=== PATIENT | male | born 1950 | race Caucasian/White ===

== ENCOUNTER 2019-02-12 18:49 | Inpatient (IN) | payer MEDICARE, BC ==
[~2019-02-12] VITALS: Ht 172.7 cm; Wt 112.0 kg
[2019-02-12] MEDS ORDERED: aspirin 81mg tab.chew PO ONE (19:10)
[2019-02-12 19:56] LABS: ABG BASE EXCESS -2.8 mmol/L (-2.0-3.0); ABG HCO3 19.5 mmol/L (22.0-26.0); ABG OXYGEN SATURATION 99.6 % (95-98); ABG PCO2 (T) 28.3 mmHg (35.0-45.0); ABG PH (T) 7.456 (7.350-7.450); ABG PO2 (T) 336.5 mmHg (83-108); FCOHb 0.7 % (0.5-1.5); FMetHb 0.3 % (0.3-1.12); FO2Hb 98.6 % (94-100); MINUTE VOLUME 31 L/min; PATIENT TEMPERATURE 36.8; RESPIRATORY RATE 22 b/min; RESPIRATORY RATE (OBSERVED) 24 b/min; TIDAL VOLUME 1210 mL; TOTAL HEMOGLOBIN 16.7 G/dl (14.0-17.9)
[2019-02-12 20:24] LABS: BASOPHILS # (AUTO) 0.1 X10'3 (0-0.2); BASOPHILS % (AUTO) 0.7 % (0-1); EOSINOPHILS # (AUTO) 0.1 X10'3 (0-0.9); EOSINOPHILS % (AUTO) 0.5 % (0-6); HEMATOCRIT 48.6 % (42.0-52.0); HEMOGLOBIN 16.4 g/dl (14.0-17.9); LYMPHOCYTES # (AUTO) 1.3 X10'3 (1.1-4.8); LYMPHOCYTES % (AUTO) 13.3 % (21-51); MEAN CORPUSCULAR HEMOGLOBIN 33.5 PG (27.0-31.0); MEAN CORPUSCULAR HGB CONC 33.8 g/dL (33.0-36.5); MEAN PLATELET VOLUME 9.8 FL (7.4-10.4); MONOCYTES # (AUTO) 0.8 X10'3 (0-0.9); MONOCYTES % (AUTO) 8.6 % (2-12); NEUTROPHILS # (AUTO) 7.3 X10'3 (1.8-7.7); NEUTROPHILS % (AUTO) 76.9 % (42-75); PLATELET COUNT 183 X10'3 (140-440); RED BLOOD COUNT 4.91 X10'6 (4.70-6.10); RED CELL DISTRIBUTION WIDTH 17.9 % (11.5-14.5); WHITE BLOOD COUNT 9.5 X10'3 (4.5-11.0)
[2019-02-12 20:26] LABS: ALANINE AMINOTRANSFERASE 24 U/L (12-78); ALBUMIN 3.2 G/DL (3.4-5.0); ALKALINE PHOSPHATASE 140 IU/L (46-116); ANION GAP 15 (8-16); ASPARTATE AMINO TRANSFERASE 40 U/L (10-37); BILIRUBIN,TOTAL 3.6 MG/DL (0.1-1.0); BLOOD UREA NITROGEN 102 MG/DL (7-18); CALCIUM 9.4 MG/DL (8.5-10.1); CHLORIDE 102 MMOL/L (99-107); CREATININE 4.43 MG/DL (0.60-1.10); GLUCOSE 88 MG/DL (70-104); SODIUM 140 MMOL/L (135-145); TOTAL CARBON DIOXIDE 22.7 MMOL/L (24-32); eGFR 13 ML/MIN
[2019-02-12 20:30] LABS: TOTAL PROTEIN 6.3 G/DL (6.4-8.2)
[2019-02-12 20:40] LABS: MAGNESIUM 2.9 MG/DL (1.5-2.4)
[2019-02-12] MEDS ORDERED: insulin regular, human 10 units/0.1 ml syringe IV ONE (20:50)
[2019-02-12] MEDS ORDERED: dextrose 50%-water 50ml dispensing syringe IV ONE (20:50)
[2019-02-12 21:33] LABS: NUCLEATED RED BLOOD CELLS 3 /100WBC (0-0); TOTAL CELLS COUNTED 100
[2019-02-12 21:35] LABS: PLATELET ESTIMATE NORMAL
[2019-02-12 21:36] LABS: ANISOCYTOSIS 1+; LARGE PLATELETS FEW; POLYCHROMASIA 1+; SCHISTOCYTES FEW
[2019-02-12] MEDS ORDERED: magnesium hydroxide 30ml (MOM) UD suspension PO PRN (22:10)
[2019-02-12] MEDS ORDERED: acetaminophen 325mg tablet PO PRN ×2 (22:10)
[2019-02-12] MEDS ORDERED: ondansetron/PF 4mg/2ml inj IV PRN (22:10)
[2019-02-12] MEDS ORDERED: mag hydrox/Alum hydrox/simeth 30ml oral suspension PO PRN (22:10)
[2019-02-12] MEDS ORDERED: BUDE10.22 INH (22:18)
[2019-02-12] MEDS ORDERED: BUME2TAB7 PO (22:18)
[2019-02-12] MEDS ORDERED: CARV6.253 PO (22:18)
[2019-02-12] MEDS ORDERED: FERR325T32 PO (22:18)
[2019-02-12] MEDS ORDERED: ASPI-1265 PO (22:18)
[2019-02-12] MEDS ORDERED: ALBU2.5V13 NEB (22:18)
[2019-02-12] MEDS ORDERED: SPIR25TA5 PO (22:18)
[2019-02-12] MEDS ORDERED: ROSU10TA28 (22:22)
[2019-02-12] MEDS ORDERED: MULT1TAB74 PO (22:22)
[2019-02-12] MEDS ORDERED: LEVO25TA7 PO (22:22)
[2019-02-12] MEDS ORDERED: OMEP40CA13 PO (22:22)
[2019-02-12] MEDS ORDERED: SERT-153 PO (22:22)
[2019-02-12] MEDS ORDERED: NITR0.4T48 SL (22:22)
[2019-02-12] MEDS ORDERED: albuterol 2.5 MG/3 ML nebule NEB PRN (22:45)
[2019-02-12 23:00] VITALS: BP 135/84
[2019-02-12] MEDS: furosemide 10 MG/1 ML 10ml inj IV SCH (23:48)
[2019-02-13] VITALS (9 sets, daily range): BP systolic 109–178; BP diastolic 81–104
[2019-02-13] MEDS: albuterol 2.5 MG/3 ML nebule NEB SCH ×4 (03:21→20:27)
--- NOTE | 2019-02-13 06:00 | NUR ---
Patient in room PCU 3023. I have received report from JOHNY Torres and had the opportunity to ask questions and assume patient care.
[2019-02-13] MEDS: carvedilol 6.25mg tablet PO SCH ×2 (07:38→21:14)
[2019-02-13] MEDS: furosemide 10 MG/1 ML 10ml inj IV SCH ×3 (07:38→23:58)
[2019-02-13] MEDS: levoTHYROXINE 25mcg tablet PO SCH (07:38)
[2019-02-13] MEDS: pantoprazole 40mg Tablet.DR PO SCH (07:38)
[2019-02-13] MEDS: multivitamins, therapeutics tablet PO SCH (07:39)
[2019-02-13] MEDS: ferrous sulfate 325mg tablet PO SCH (07:39)
[2019-02-13] MEDS: sertraline 50mg tablet PO SCH (07:39)
[2019-02-13] MEDS: aspirin 81mg tab.chew PO SCH (07:41)
[2019-02-13] MEDS: heparin, porcine 5000 units/ml vial SQ SCH ×2 (07:41→21:15)
[2019-02-13 08:00] LABS: BASOPHILS # (AUTO) 0.1 X10'3 (0-0.2); BASOPHILS % (AUTO) 1.3 % (0-1); EOSINOPHILS # (AUTO) 0.1 X10'3 (0-0.9); EOSINOPHILS % (AUTO) 1.3 % (0-6); HEMATOCRIT 49.8 % (42.0-52.0); HEMOGLOBIN 16.2 g/dl (14.0-17.9); LYMPHOCYTES # (AUTO) 1.3 X10'3 (1.1-4.8); LYMPHOCYTES % (AUTO) 12.4 % (21-51); MEAN CORPUSCULAR HEMOGLOBIN 32.6 PG (27.0-31.0); MEAN CORPUSCULAR HGB CONC 32.5 g/dL (33.0-36.5); MEAN CORPUSCULAR VOLUME 100.4 FL (78-98); MEAN PLATELET VOLUME 9.5 FL (7.4-10.4); MONOCYTES # (AUTO) 0.9 X10'3 (0-0.9); MONOCYTES % (AUTO) 8.9 % (2-12); NEUTROPHILS # (AUTO) 7.8 X10'3 (1.8-7.7); NEUTROPHILS % (AUTO) 76.1 % (42-75); PLATELET COUNT 180 X10'3 (140-440); RED BLOOD COUNT 4.96 X10'6 (4.70-6.10); RED CELL DISTRIBUTION WIDTH 18.5 % (11.5-14.5); WHITE BLOOD COUNT 10.2 X10'3 (4.5-11.0)
[2019-02-13 08:13] LABS: PARTIAL THROMBOPLASTIN TIME 32 SECONDS (22-32)
[2019-02-13 08:16] LABS: ALBUMIN 3.1 G/DL (3.4-5.0); ANION GAP 15 (8-16); BLOOD UREA NITROGEN 106 MG/DL (7-18); BUN/CREATININE RATIO 22.7 (5.4-32.0); CALCIUM 9.4 MG/DL (8.5-10.1); CHLORIDE 102 MMOL/L (99-107); CREATININE 4.67 MG/DL (0.60-1.10); GLUCOSE 92 MG/DL (70-104); MAGNESIUM 2.9 MG/DL (1.5-2.4); SODIUM 140 MMOL/L (135-145); TOTAL CARBON DIOXIDE 23.1 MMOL/L (24-32); eGFR 12 ML/MIN
[2019-02-13 08:23] LABS: PHOSPHORUS 8.3 MG/DL (2.3-4.5)
[2019-02-13] MEDS: budesonide 0.5mg/2ml UD nebule IH SCH ×2 (08:42→20:27)
--- NOTE | 2019-02-13 08:45 | NUR ---
Rajiv Holden 3023b Critical Potassium 6.0 @ 2014 JOHNY Smith [id number]
[2019-02-13 09:30] LABS: NUCLEATED RED BLOOD CELLS 4 /100WBC (0-0); TOTAL CELLS COUNTED 100
[2019-02-13] MEDS ORDERED: sodium polystyrene sulfonate 15gm/60ml oral suspension PO ONE (09:30)
[2019-02-13 10:47] LABS: ANISOCYTOSIS 2+; PLATELET ESTIMATE NORMAL
[2019-02-13 10:48] LABS: LARGE PLATELETS FEW; POLYCHROMASIA FEW; SCHISTOCYTES FEW
[2019-02-13] MEDS: DOBUTamine-DoBUTrex 500mg/D5W 250 ML IV SCH (13:15)
[2019-02-13] MEDS: morphine 2 MG/ML inj. syringe IV PRN (16:47)
[2019-02-13 16:52] LABS: CLARITY,URINE CLOUDY (Clear); COLOR,URINE YELLOW (Yellow); GLUCOSE, URINE NEGATIVE (Neg); KETONES,URINE NEGATIVE (Neg); LEUKOCYTE ESTERASE ,URINE NEGATIVE (Neg); NITRITES, URINE NEGATIVE (Neg); OCCULT BLOOD,URINE LARGE (Neg); PH,URINE 5.5 (4.8-8.0); PROTEIN,URINE NEGATIVE (Neg); UROBILINOGEN,URINE 0.2 E.U/dL (0.2-1.0)
[2019-02-13 16:56] LABS: TOTAL PROTEIN,URINE RANDOM 11.7 MG/DL
[2019-02-13 17:07] LABS: UA COLLECTION TYPE CLN CATCH MIDSTREAM
[2019-02-13 17:16] LABS: RBC,URINE 50-100 /HPF (0-2)
[2019-02-13 17:17] LABS: BACTERIA,URINE NONE SEEN /HPF (Neg); SQUAMOUS EPITHELIAL CELL,UR FEW /LPF (FEW); WBC,URINE 0-4 /HPF (0-4)
[2019-02-13 18:22] LABS: UA EOSINOPHILS NO EOS /HPF
[2019-02-13] MEDS ORDERED: citric acid/sodium citrate 15ml oral solution PO ONE (21:00)
[2019-02-14] VITALS (13 sets, daily range): BP systolic 111–144; BP diastolic 76–102
[2019-02-14] MEDS: albuterol 2.5 MG/3 ML nebule NEB SCH ×4 (03:20→20:16)
[2019-02-14 05:00] LABS: BASOPHILS # (AUTO) 0.1 X10'3 (0-0.2); BASOPHILS % (AUTO) 1.3 % (0-1); EOSINOPHILS # (AUTO) 0.2 X10'3 (0-0.9); EOSINOPHILS % (AUTO) 2.3 % (0-6); HEMATOCRIT 43.1 % (42.0-52.0); HEMOGLOBIN 14.2 g/dl (14.0-17.9); LYMPHOCYTES # (AUTO) 1.2 X10'3 (1.1-4.8); LYMPHOCYTES % (AUTO) 12.6 % (21-51); MEAN CORPUSCULAR HEMOGLOBIN 32.6 PG (27.0-31.0); MEAN CORPUSCULAR VOLUME 98.6 FL (78-98); MEAN PLATELET VOLUME 9.3 FL (7.4-10.4); MONOCYTES # (AUTO) 0.8 X10'3 (0-0.9); MONOCYTES % (AUTO) 8.6 % (2-12); NEUTROPHILS # (AUTO) 7.1 X10'3 (1.8-7.7); NEUTROPHILS % (AUTO) 75.2 % (42-75); PLATELET COUNT 163 X10'3 (140-440); RED BLOOD COUNT 4.37 X10'6 (4.70-6.10); RED CELL DISTRIBUTION WIDTH 18.5 % (11.5-14.5); WHITE BLOOD COUNT 9.4 X10'3 (4.5-11.0)
[2019-02-14] MEDS: DOBUTamine-DoBUTrex 500mg/D5W 250 ML IV SCH ×2 (05:00→22:30)
[2019-02-14 05:07] LABS: PARTIAL THROMBOPLASTIN TIME 31 SECONDS (22-32)
[2019-02-14 05:13] LABS: ANION GAP 14 (8-16); BLOOD UREA NITROGEN 107 MG/DL (7-18); BUN/CREATININE RATIO 23.2 (5.4-32.0); CALCIUM 8.9 MG/DL (8.5-10.1); CHLORIDE 101 MMOL/L (99-107); CREATININE 4.62 MG/DL (0.60-1.10); GLUCOSE 122 MG/DL (70-104); MAGNESIUM 2.8 MG/DL (1.5-2.4); POTASSIUM 4.4 MMOL/L (3.5-5.1); SODIUM 140 MMOL/L (135-145); TOTAL CARBON DIOXIDE 25.1 MMOL/L (24-32); eGFR 13 ML/MIN
[2019-02-14 05:28] LABS: PHOSPHORUS 7.8 MG/DL (2.3-4.5)
--- NOTE | 2019-02-14 06:14 | NUR ---
Patient in room PCU 3023. I have received report from JOHNY Torres and had the opportunity to ask questions and assume patient care.
[2019-02-14] MEDS: furosemide 10 MG/1 ML 10ml inj IV SCH ×2 (07:43→17:31)
[2019-02-14] MEDS: multivitamins, therapeutics tablet PO SCH (07:44)
[2019-02-14] MEDS: carvedilol 6.25mg tablet PO SCH ×2 (07:44→20:45)
[2019-02-14] MEDS: aspirin 81mg tab.chew PO SCH (07:44)
[2019-02-14] MEDS: heparin, porcine 5000 units/ml vial SQ SCH ×2 (07:44→20:46)
[2019-02-14] MEDS: levoTHYROXINE 25mcg tablet PO SCH (07:44)
[2019-02-14] MEDS: pantoprazole 40mg Tablet.DR PO SCH (07:44)
[2019-02-14] MEDS: sertraline 50mg tablet PO SCH (07:44)
[2019-02-14] MEDS: ferrous sulfate 325mg tablet PO SCH (07:44)
[2019-02-14] MEDS: budesonide 0.5mg/2ml UD nebule IH SCH ×2 (08:11→20:16)
--- NOTE | 2019-02-14 10:41 | NUR ---
WOUND INFECTION EDUCATION PROVIDED BY WOUND CARE 1. Patient instructed to call their primary doctor, or go the ED immediately if any of the following symptoms occur: * Increased pain in wound * Increase in drainage from the wound * Redness in the skin surrounding the wound * Warmth in the skin surrounding the wound * Bleeding from the wound * Temperature of 101 or greater 2. If any of these occur while in the hospital tell a nurse immediately. Addendum: 02/14/19 at 1041 by Cydney Reich RN Amended: Links added.
[2019-02-14] MEDS: sevelamer carbonate 800mg tablet PO SCH ×2 (13:26→17:31)
--- NOTE | 2019-02-14 17:53 | NUR ---
VS stable throughout the day. Remains on Dobutamine gtt @ 5 mcg. denies pain. 24hr urine started @ 1000. HERI PICC placed. Safety maintained moving with x1 assistance in room. Pt ambulated around the nurses station with PT.
--- NOTE | 2019-02-14 18:10 | NUR ---
Patient in room PCU 3023. I have received report from JOHNY Caban and had the opportunity to ask questions and assume patient care.
[2019-02-14] MEDS: morphine 2 MG/ML inj. syringe IV PRN (20:46)
--- NOTE | 2019-02-14 23:05 | NUR ---
This patient is able to turn in bed with the help of his spouse at bedside on my shift. Addendum: 02/14/19 at 2314 by Yakelin Dubon RN Amended: Links added.
[2019-02-15] VITALS (11 sets, daily range): BP systolic 116–141; BP diastolic 73–111
[2019-02-15] MEDS: furosemide 10 MG/1 ML 10ml inj IV SCH ×3 (00:19→16:35)
[2019-02-15] MEDS: morphine 2 MG/ML inj. syringe IV PRN ×2 (00:34→21:25)
[2019-02-15] MEDS: albuterol 2.5 MG/3 ML nebule NEB SCH ×4 (02:59→20:21)
--- NOTE | 2019-02-15 06:25 | NUR ---
Problems reprioritized. Patient report given, questions answered & plan of care reviewed with JOHNY Caban.
[2019-02-15] MEDS: multivitamins, therapeutics tablet PO SCH (08:06)
[2019-02-15] MEDS: pantoprazole 40mg Tablet.DR PO SCH (08:06)
[2019-02-15] MEDS: ferrous sulfate 325mg tablet PO SCH (08:06)
[2019-02-15] MEDS: sertraline 50mg tablet PO SCH (08:06)
[2019-02-15] MEDS: levoTHYROXINE 25mcg tablet PO SCH (08:06)
[2019-02-15] MEDS: carvedilol 6.25mg tablet PO SCH ×2 (08:06→20:24)
[2019-02-15] MEDS: heparin, porcine 5000 units/ml vial SQ SCH ×2 (08:06→20:28)
[2019-02-15] MEDS: sevelamer carbonate 800mg tablet PO SCH ×3 (08:06→17:47)
[2019-02-15] MEDS: aspirin 81mg tab.chew PO SCH (08:06)
[2019-02-15 08:16] LABS: BASOPHILS # (AUTO) 0.1 X10'3 (0-0.2); EOSINOPHILS # (AUTO) 0.4 X10'3 (0-0.9); EOSINOPHILS % (AUTO) 4.4 % (0-6); MEAN PLATELET VOLUME 9.2 FL (7.4-10.4); MONOCYTES # (AUTO) 0.6 X10'3 (0-0.9)
[2019-02-15 08:18] LABS: BASOPHILS % (AUTO) 0.6 % (0-1); HEMATOCRIT 46.1 % (42.0-52.0); HEMOGLOBIN 15.2 g/dl (14.0-17.9); LYMPHOCYTES % (AUTO) 11.6 % (21-51); MEAN CORPUSCULAR HEMOGLOBIN 32.7 PG (27.0-31.0); MEAN CORPUSCULAR HGB CONC 32.9 g/dL (33.0-36.5); MEAN CORPUSCULAR VOLUME 99.5 FL (78-98); NEUTROPHILS # (AUTO) 6.4 X10'3 (1.8-7.7); NEUTROPHILS % (AUTO) 76.4 % (42-75); PLATELET COUNT 148 X10'3 (140-440); RED BLOOD COUNT 4.64 X10'6 (4.70-6.10); RED CELL DISTRIBUTION WIDTH 18.3 % (11.5-14.5); WHITE BLOOD COUNT 8.4 X10'3 (4.5-11.0)
[2019-02-15 08:25] LABS: ANION GAP 10 (8-16); CHLORIDE 101 MMOL/L (99-107); MAGNESIUM 2.5 MG/DL (1.5-2.4); SODIUM 141 MMOL/L (135-145); TOTAL CARBON DIOXIDE 30.4 MMOL/L (24-32)
[2019-02-15 08:26] LABS: PARTIAL THROMBOPLASTIN TIME 30 SECONDS (22-32)
[2019-02-15 08:32] LABS: BLOOD UREA NITROGEN 103 MG/DL (7-18); BUN/CREATININE RATIO 26.8 (5.4-32.0); CALCIUM 8.6 MG/DL (8.5-10.1); CREATININE 3.84 MG/DL (0.60-1.10); GLUCOSE 123 MG/DL (70-104); PHOSPHORUS 5.8 MG/DL (2.3-4.5); POTASSIUM 4.5 MMOL/L (3.5-5.1); eGFR 16 ML/MIN
[2019-02-15] MEDS: budesonide 0.5mg/2ml UD nebule IH SCH ×2 (09:13→20:21)
--- NOTE | 2019-02-15 09:39 | NUR ---
Called Dr. Martin per MD request with bladder scan results. MD did not answer the phone. Bladder scan showed 6mL after pt voided.
[2019-02-15 09:55] LABS: ANISOCYTOSIS 2+; LARGE PLATELETS FEW; PLATELET ESTIMATE NORMAL; POLYCHROMASIA 1+
[2019-02-15 09:56] LABS: SCHISTOCYTES FEW
[2019-02-15 11:41] LABS: TOTAL VOLUME 24HRS,URINE 3925 ML; UREA NITROGEN 24HR,URINE 12.6 GM/24HR (7-20)
--- NOTE | 2019-02-15 17:36 | NUR ---
VS stable throughout the day. Remains on Dobutamine gtt @ 5 mcg. Denies pain. Strict I&O's recorded. Bladder scans recorded. 24hr complete @ 1000 and sent to lab. Safety maintained as pt walked around the unit with PT x2 today. Moves independently in bed. Plan to continue to diurese and monitor pt on Dobutamine gtt. Pt states he is feeling better.
[2019-02-15] MEDS: DOBUTamine-DoBUTrex 500mg/D5W 250 ML IV SCH (17:47)
--- NOTE | 2019-02-15 21:56 | NUR ---
Spoke to Dr. Lemus about patient's PICC insertion site having redness, heat and mild swelling. He is going to be taking over this patient in the morning and said that he will take a look when he does rounds in the morning.
[2019-02-16] VITALS (16 sets, daily range): BP systolic 102–137; BP diastolic 71–98
[2019-02-16] MEDS: furosemide 10 MG/1 ML 10ml inj IV SCH ×3 (00:19→16:33)
[2019-02-16] MEDS: albuterol 2.5 MG/3 ML nebule NEB SCH ×4 (02:59→20:56)
[2019-02-16 03:31] LABS: BASOPHILS # (AUTO) 0.1 X10'3 (0-0.2); EOSINOPHILS # (AUTO) 0.3 X10'3 (0-0.9); LYMPHOCYTES # (AUTO) 0.9 X10'3 (1.1-4.8); MONOCYTES # (AUTO) 0.5 X10'3 (0-0.9); NEUTROPHILS # (AUTO) 5.5 X10'3 (1.8-7.7)
[2019-02-16 03:33] LABS: BASOPHILS % (AUTO) 0.9 % (0-1); HEMATOCRIT 44.8 % (42.0-52.0); LYMPHOCYTES % (AUTO) 11.8 % (21-51); MEAN CORPUSCULAR HEMOGLOBIN 33.4 PG (27.0-31.0); MEAN CORPUSCULAR HGB CONC 33.4 g/dL (33.0-36.5); MEAN CORPUSCULAR VOLUME 99.9 FL (78-98); MEAN PLATELET VOLUME 9.9 FL (7.4-10.4); MONOCYTES % (AUTO) 7.4 % (2-12); NEUTROPHILS % (AUTO) 75.9 % (42-75); PLATELET COUNT 134 X10'3 (140-440); RED BLOOD COUNT 4.48 X10'6 (4.70-6.10); RED CELL DISTRIBUTION WIDTH 18.3 % (11.5-14.5); WHITE BLOOD COUNT 7.2 X10'3 (4.5-11.0)
[2019-02-16 03:43] LABS: ANION GAP 6 (8-16); BLOOD UREA NITROGEN 91 MG/DL (7-18); BUN/CREATININE RATIO 29.4 (5.4-32.0); CALCIUM 8.7 MG/DL (8.5-10.1); CHLORIDE 101 MMOL/L (99-107); GLUCOSE 114 MG/DL (70-104); MAGNESIUM 2.4 MG/DL (1.5-2.4); POTASSIUM 4.5 MMOL/L (3.5-5.1); SODIUM 140 MMOL/L (135-145); TOTAL CARBON DIOXIDE 32.9 MMOL/L (24-32); eGFR 20 ML/MIN
--- NOTE | 2019-02-16 06:15 | NUR ---
Patient in room PCU 3023. I have received report from Yakelin MCCLAIN and had the opportunity to ask questions and assume patient care.
--- NOTE | 2019-02-16 06:41 | NUR ---
Problems reprioritized. Patient report given, questions answered & plan of care reviewed with JOHNY Cast.
--- NOTE | 2019-02-16 07:40 | NUR ---
Patient in room PCU 3023. I have received report from JOHNY Hamlin and had the opportunity to ask questions and assume patient care.
[2019-02-16] MEDS: budesonide 0.5mg/2ml UD nebule IH SCH ×2 (09:26→20:56)
[2019-02-16] MEDS: multivitamins, therapeutics tablet PO SCH (10:10)
[2019-02-16] MEDS: pantoprazole 40mg Tablet.DR PO SCH (10:10)
[2019-02-16] MEDS: carvedilol 6.25mg tablet PO SCH ×2 (10:11→20:13)
[2019-02-16] MEDS: ferrous sulfate 325mg tablet PO SCH (10:11)
[2019-02-16] MEDS: sevelamer carbonate 800mg tablet PO SCH ×3 (10:11→17:43)
[2019-02-16] MEDS: aspirin 81mg tab.chew PO SCH (10:11)
[2019-02-16] MEDS: sertraline 50mg tablet PO SCH (10:11)
[2019-02-16] MEDS: levoTHYROXINE 25mcg tablet PO SCH (10:11)
[2019-02-16] MEDS: morphine 2 MG/ML inj. syringe IV PRN ×2 (10:13→21:08)
[2019-02-16] MEDS: heparin, porcine 5000 units/ml vial SQ SCH ×2 (10:15→20:14)
[2019-02-16] MEDS: DOBUTamine-DoBUTrex 500mg/D5W 250 ML IV SCH ×2 (11:29→23:40)
--- NOTE | 2019-02-16 18:30 | NUR ---
Problems reprioritized. Patient report given, questions answered & plan of care reviewed with Mireya MCCLAIN.
--- NOTE | 2019-02-16 18:38 | NUR ---
Problems reprioritized. Patient report given, questions answered & plan of care reviewed with JOHNY Gomes.
--- NOTE | 2019-02-16 18:39 | NUR ---
Patient in room PCU 3023. I have received report from JOHNY Robb and had the opportunity to ask questions and assume patient care. Patient is resting comfortably on hospital bed, he is on a dobutamine drip with bedside mobile. He is A&O x3, ALLEN and is appropriate. I will continue to monitor.
--- NOTE | 2019-02-16 22:33 | NUR ---
Around 2100 patient was given Morphine 2mg and shortly after reported feeling hot and clammy. I adjusted the Thermostat in his room so that it would be cooler and he took off all covers. Temp 98.3, BP 119/92, RR 12, SpO2 97% on 2L and pain 0/10, BG 107. I will continue to monitor, at this time he is sleeping comfortably.
[2019-02-17] VITALS (16 sets, daily range): BP systolic 113–160; BP diastolic 79–98
[2019-02-17] MEDS: furosemide 10 MG/1 ML 10ml inj IV SCH ×4 (00:14→23:33)
[2019-02-17] MEDS: albuterol 2.5 MG/3 ML nebule NEB SCH ×4 (03:12→20:33)
[2019-02-17] MEDS: DOBUTamine-DoBUTrex 500mg/D5W 250 ML IV SCH ×2 (04:44→23:34)
--- NOTE | 2019-02-17 05:03 | NUR ---
PICC does not draw.
--- NOTE | 2019-02-17 06:34 | NUR ---
Patient in room PCU 3023. I have received report from JOHNY Gutierrez and had the opportunity to ask questions and assume patient care.
[2019-02-17] MEDS: levoTHYROXINE 25mcg tablet PO SCH (07:10)
[2019-02-17] MEDS: budesonide 0.5mg/2ml UD nebule IH SCH ×2 (08:43→20:33)
[2019-02-17] MEDS: multivitamins, therapeutics tablet PO SCH (08:48)
[2019-02-17] MEDS: pantoprazole 40mg Tablet.DR PO SCH (08:48)
[2019-02-17] MEDS: sertraline 50mg tablet PO SCH (08:48)
[2019-02-17] MEDS: carvedilol 6.25mg tablet PO SCH ×2 (08:48→21:41)
[2019-02-17] MEDS: ferrous sulfate 325mg tablet PO SCH (08:48)
[2019-02-17] MEDS: heparin, porcine 5000 units/ml vial SQ SCH ×2 (08:48→21:42)
[2019-02-17] MEDS: aspirin 81mg tab.chew PO SCH (08:48)
[2019-02-17] MEDS: sevelamer carbonate 800mg tablet PO SCH ×3 (08:48→18:02)
--- NOTE | 2019-02-17 12:13 | NUR ---
[employer] Flow Coordinator is Stephania Lafleur [phone]
--- NOTE | 2019-02-17 15:34 | NUR ---
Initial: Pt admit w/ CHF EF 10% likely causing DICK on CKD per MD note. Pt PO 100% meals meeting needs. LBM 02/16. Phos down to 5.0 from 8.3 on admit. No nutrition concerns at this time. Rec: 1. continue Na-restricted diet per MD 2. wt per rx Addendum: 02/17/19 at [address] Amended: Links added.
--- NOTE | 2019-02-17 18:00 | NUR ---
Problems reprioritized. Patient report given, questions answered & plan of care reviewed with JOHNY Blackmon .
--- NOTE | 2019-02-17 18:37 | NUR ---
Patient in room PCU 3023. I have received report from Kristin MCCLAIN and had the opportunity to ask questions and assume patient care.
[2019-02-18] VITALS (11 sets, daily range): BP systolic 95–129; BP diastolic 65–102
[2019-02-18] MEDS: albuterol 2.5 MG/3 ML nebule NEB SCH ×4 (03:01→20:11)
--- NOTE | 2019-02-18 06:19 | NUR ---
Problems reprioritized. Patient report given, questions answered & plan of care reviewed with Kristin MCCLAIN.
--- NOTE | 2019-02-18 06:25 | NUR ---
Patient in room PCU 3023. I have received report from JOHNY Lawrence and had the opportunity to ask questions and assume patient care.
[2019-02-18 06:28] LABS: ALANINE AMINOTRANSFERASE 25 U/L (12-78); ALBUMIN 3.1 G/DL (3.4-5.0); ALKALINE PHOSPHATASE 129 IU/L (46-116); ANION GAP 9 (8-16); ASPARTATE AMINO TRANSFERASE 33 U/L (10-37); BILIRUBIN,TOTAL 3.3 MG/DL (0.1-1.0); BLOOD UREA NITROGEN 76 MG/DL (7-18); CHLORIDE 100 MMOL/L (99-107); CREATININE 2.45 MG/DL (0.60-1.10); GLUCOSE 104 MG/DL (70-104); MAGNESIUM 2.3 MG/DL (1.5-2.4); SODIUM 142 MMOL/L (135-145); TOTAL CARBON DIOXIDE 33.3 MMOL/L (24-32); eGFR 26 ML/MIN
[2019-02-18 06:29] LABS: PHOSPHORUS 3.9 MG/DL (2.3-4.5); POTASSIUM 4.7 MMOL/L (3.5-5.1); TOTAL PROTEIN 6.3 G/DL (6.4-8.2)
--- NOTE | 2019-02-18 06:40 | NUR ---
estimated EF from ECHO report dated 02/17/19 10-15%
[2019-02-18] MEDS: levoTHYROXINE 25mcg tablet PO SCH (07:00)
[2019-02-18] MEDS: sevelamer carbonate 800mg tablet PO SCH ×3 (08:03→17:36)
[2019-02-18] MEDS: aspirin 81mg tab.chew PO SCH (08:03)
[2019-02-18] MEDS: furosemide 40mg tablet PO SCH (08:03)
[2019-02-18] MEDS: multivitamins, therapeutics tablet PO SCH (08:03)
[2019-02-18] MEDS: sertraline 50mg tablet PO SCH (08:03)
[2019-02-18] MEDS: pantoprazole 40mg Tablet.DR PO SCH (08:03)
[2019-02-18] MEDS: ferrous sulfate 325mg tablet PO SCH (08:03)
[2019-02-18] MEDS: carvedilol 6.25mg tablet PO SCH ×2 (08:03→19:20)
[2019-02-18] MEDS: heparin, porcine 5000 units/ml vial SQ SCH ×2 (08:07→19:24)
[2019-02-18 08:19] LABS: BASOPHILS # (AUTO) 0.1 X10'3 (0-0.2); EOSINOPHILS # (AUTO) 0.3 X10'3 (0-0.9); EOSINOPHILS % (AUTO) 4.2 % (0-6); HEMATOCRIT 46.1 % (42.0-52.0); HEMOGLOBIN 15.2 g/dl (14.0-17.9); LYMPHOCYTES # (AUTO) 0.9 X10'3 (1.1-4.8); LYMPHOCYTES % (AUTO) 11.5 % (21-51); MEAN CORPUSCULAR HGB CONC 32.9 g/dL (33.0-36.5); MEAN CORPUSCULAR VOLUME 100.3 FL (78-98); MEAN PLATELET VOLUME 10.1 FL (7.4-10.4); MONOCYTES # (AUTO) 0.5 X10'3 (0-0.9); MONOCYTES % (AUTO) 6.9 % (2-12); NEUTROPHILS # (AUTO) 5.9 X10'3 (1.8-7.7); NEUTROPHILS % (AUTO) 76.4 % (42-75); PLATELET COUNT 102 X10'3 (140-440); RED CELL DISTRIBUTION WIDTH 18.9 % (11.5-14.5); WHITE BLOOD COUNT 7.8 X10'3 (4.5-11.0)
[2019-02-18] MEDS: budesonide 0.5mg/2ml UD nebule IH SCH ×2 (09:27→20:11)
--- NOTE | 2019-02-18 09:39 | NUR ---
dobutamine discontinued per MD order
[2019-02-18 09:43] LABS: ANISOCYTOSIS 2+; PLATELET ESTIMATE DECREASED
--- NOTE | 2019-02-18 18:15 | NUR ---
Problems reprioritized. Patient report given, questions answered & plan of care reviewed with JOHNY Blackmon .
--- NOTE | 2019-02-18 18:45 | NUR ---
Patient in room PCU 3023. I have received report from Sarah MCCLAIN and had the opportunity to ask questions and assume patient care.
[2019-02-18] MEDS: Melatonin 3mg tablet PO SCH (20:52)
[2019-02-18] MEDS ORDERED: LORazepam 2 mg/ml vial IV PRN (22:50)
[2019-02-19 02:00] VITALS: BP 130/101
[2019-02-19] MEDS: albuterol 2.5 MG/3 ML nebule NEB SCH ×4 (02:51→19:54)
[2019-02-19 06:00] VITALS: BP 111/81
--- NOTE | 2019-02-19 06:19 | NUR ---
Problems reprioritized. Patient report given, questions answered & plan of care reviewed with Kristin MCCLAIN.
[2019-02-19 06:35] LABS: BASOPHILS # (AUTO) 0.1 X10'3 (0-0.2); EOSINOPHILS # (AUTO) 0.2 X10'3 (0-0.9); EOSINOPHILS % (AUTO) 3.2 % (0-6); HEMATOCRIT 46.2 % (42.0-52.0); HEMOGLOBIN 15.3 g/dl (14.0-17.9); LYMPHOCYTES % (AUTO) 13.7 % (21-51); MEAN CORPUSCULAR HEMOGLOBIN 33.2 PG (27.0-31.0); MEAN CORPUSCULAR HGB CONC 33.2 g/dL (33.0-36.5); MEAN CORPUSCULAR VOLUME 100.2 FL (78-98); MEAN PLATELET VOLUME 9.4 FL (7.4-10.4); MONOCYTES # (AUTO) 0.7 X10'3 (0-0.9); MONOCYTES % (AUTO) 8.8 % (2-12); NEUTROPHILS # (AUTO) 5.5 X10'3 (1.8-7.7); NEUTROPHILS % (AUTO) 73.3 % (42-75); PLATELET COUNT 74 X10'3 (140-440); RED BLOOD COUNT 4.61 X10'6 (4.70-6.10); RED CELL DISTRIBUTION WIDTH 18.5 % (11.5-14.5); WHITE BLOOD COUNT 7.5 X10'3 (4.5-11.0)
[2019-02-19 06:45] LABS: ALANINE AMINOTRANSFERASE 26 U/L (12-78); ALKALINE PHOSPHATASE 109 IU/L (46-116); ANION GAP 4 (8-16); BILIRUBIN,TOTAL 3.5 MG/DL (0.1-1.0); BLOOD UREA NITROGEN 77 MG/DL (7-18); BUN/CREATININE RATIO 33.6 (5.4-32.0); CALCIUM 8.8 MG/DL (8.5-10.1); CHLORIDE 101 MMOL/L (99-107); CREATININE 2.29 MG/DL (0.60-1.10); GLUCOSE 96 MG/DL (70-104); MAGNESIUM 2.4 MG/DL (1.5-2.4); SODIUM 139 MMOL/L (135-145); TOTAL CARBON DIOXIDE 33.7 MMOL/L (24-32); eGFR 28 ML/MIN
[2019-02-19 06:46] LABS: ALBUMIN/GLOBULIN RATIO 0.9 (1.1-1.5); ASPARTATE AMINO TRANSFERASE 39 U/L (10-37); POTASSIUM 5.8 MMOL/L (3.5-5.1); TOTAL PROTEIN 6.2 G/DL (6.4-8.2)
[2019-02-19] MEDS: pantoprazole 40mg Tablet.DR PO SCH (08:01)
[2019-02-19] MEDS: furosemide 40mg tablet PO SCH ×2 (08:01→20:00)
[2019-02-19] MEDS: carvedilol 6.25mg tablet PO SCH ×2 (08:01→21:20)
[2019-02-19] MEDS: ferrous sulfate 325mg tablet PO SCH (08:01)
[2019-02-19] MEDS: sertraline 50mg tablet PO SCH (08:01)
[2019-02-19] MEDS: levoTHYROXINE 25mcg tablet PO SCH (08:01)
[2019-02-19] MEDS: multivitamins, therapeutics tablet PO SCH (08:01)
[2019-02-19] MEDS: heparin, porcine 5000 units/ml vial SQ SCH ×2 (08:02→21:19)
[2019-02-19] MEDS: sevelamer carbonate 800mg tablet PO SCH ×3 (08:02→17:48)
[2019-02-19] MEDS: aspirin 81mg tab.chew PO SCH (08:02)
[2019-02-19] MEDS: budesonide 0.5mg/2ml UD nebule IH SCH ×2 (08:33→19:54)
[2019-02-19] MEDS ORDERED: furosemide 20MG tablet PO ONE ×2 (09:25→10:25)
[2019-02-19 11:00] VITALS: BP 141/95
[2019-02-19] MEDS: fludrocortisone acetate 0.1mg tablet PO SCH (13:36)
[2019-02-19 15:00] VITALS: BP_SYST 110; BP_SYST 141; BP_DIAS 69; BP_DIAS 87
--- NOTE | 2019-02-19 15:10 | NUR ---
Notified Dr Martin of patient weakness and aloc. He ordered STAT ABG order sent to respiratory
[2019-02-19 16:05] LABS: ABG BASE EXCESS 4.8 mmol/L (-2.0-3.0); ABG HCO3 32.1 mmol/L (22.0-26.0); ABG OXYGEN SATURATION 90.5 % (95-98); ABG PCO2 (T) 57.5 mmHg (35.0-45.0); ABG PH (T) 7.365 (7.350-7.450); ABG PO2 (T) 63.9 mmHg (83-108); ALLEN'S TEST Positive; FCOHb 1.2 % (0.5-1.5); FLOW 3 L/min; FMetHb 0.1 % (0.3-1.12); FO2Hb 89.3 % (94-100); TOTAL HEMOGLOBIN 16.4 G/dl (14.0-17.9)
--- NOTE | 2019-02-19 18:20 | NUR ---
Problems reprioritized. Patient report given, questions answered & plan of care reviewed with JOHNY Torres .
[2019-02-19 19:00] VITALS: BP 113/88
[2019-02-19] MEDS: Melatonin 3mg tablet PO SCH (21:19)
[2019-02-19 23:00] VITALS: BP_SYST 115; BP_SYST 116; BP_SYST 120; BP_DIAS 92; BP_DIAS 96
[2019-02-20] VITALS (7 sets, daily range): BP systolic 105–139; BP diastolic 68–94
[2019-02-20] MEDS: albuterol 2.5 MG/3 ML nebule NEB SCH ×4 (02:19→20:37)
[2019-02-20 04:36] LABS: BASOPHILS # (AUTO) 0.1 X10'3 (0-0.2); BASOPHILS % (AUTO) 1.1 % (0-1); EOSINOPHILS # (AUTO) 0.2 X10'3 (0-0.9); EOSINOPHILS % (AUTO) 2.5 % (0-6); HEMATOCRIT 46.9 % (42.0-52.0); HEMOGLOBIN 15.4 g/dl (14.0-17.9); LYMPHOCYTES # (AUTO) 1.1 X10'3 (1.1-4.8); LYMPHOCYTES % (AUTO) 11.9 % (21-51); MEAN CORPUSCULAR HEMOGLOBIN 33.4 PG (27.0-31.0); MEAN CORPUSCULAR VOLUME 101.2 FL (78-98); MEAN PLATELET VOLUME 10.7 FL (7.4-10.4); MONOCYTES # (AUTO) 0.7 X10'3 (0-0.9); NEUTROPHILS # (AUTO) 6.8 X10'3 (1.8-7.7); NEUTROPHILS % (AUTO) 76.5 % (42-75); PLATELET COUNT 78 X10'3 (140-440); RED BLOOD COUNT 4.63 X10'6 (4.70-6.10); WHITE BLOOD COUNT 8.9 X10'3 (4.5-11.0)
[2019-02-20 04:49] LABS: ALANINE AMINOTRANSFERASE 25 U/L (12-78); ALKALINE PHOSPHATASE 112 IU/L (46-116); ANION GAP 7 (8-16); ASPARTATE AMINO TRANSFERASE 25 U/L (10-37); BILIRUBIN,TOTAL 3.3 MG/DL (0.1-1.0); BLOOD UREA NITROGEN 80 MG/DL (7-18); CALCIUM 8.7 MG/DL (8.5-10.1); CHLORIDE 100 MMOL/L (99-107); CREATININE 2.35 MG/DL (0.60-1.10); GLUCOSE 116 MG/DL (70-104); MAGNESIUM 2.4 MG/DL (1.5-2.4); POTASSIUM 4.3 MMOL/L (3.5-5.1); SODIUM 139 MMOL/L (135-145); TOTAL CARBON DIOXIDE 31.8 MMOL/L (24-32); eGFR 27 ML/MIN
[2019-02-20 05:10] LABS: ALBUMIN/GLOBULIN RATIO 0.9 (1.1-1.5); PHOSPHORUS 4.1 MG/DL (2.3-4.5); TOTAL PROTEIN 6.2 G/DL (6.4-8.2)
--- NOTE | 2019-02-20 06:15 | NUR ---
Patient in room PCU 3023. I have received report from Melissa MCCLAIN and had the opportunity to ask questions and assume patient care. Pt is in bathroom with at bed side, all needs met at this time. will continue to monitor.
[2019-02-20 06:26] LABS: ANISOCYTOSIS 2+; PLATELET ESTIMATE DECREASED
[2019-02-20 06:27] LABS: ELLIPTOCYTES FEW
[2019-02-20] MEDS: sertraline 50mg tablet PO SCH (07:53)
[2019-02-20] MEDS: levoTHYROXINE 25mcg tablet PO SCH (07:53)
[2019-02-20] MEDS: multivitamins, therapeutics tablet PO SCH (07:53)
[2019-02-20] MEDS: carvedilol 6.25mg tablet PO SCH ×2 (07:54→19:13)
[2019-02-20] MEDS: ferrous sulfate 325mg tablet PO SCH (07:54)
[2019-02-20] MEDS: fludrocortisone acetate 0.1mg tablet PO SCH (07:54)
[2019-02-20] MEDS: aspirin 81mg tab.chew PO SCH (07:54)
[2019-02-20] MEDS: sevelamer carbonate 800mg tablet PO SCH ×3 (07:55→17:46)
[2019-02-20] MEDS: pantoprazole 40mg Tablet.DR PO SCH (07:55)
[2019-02-20] MEDS: furosemide 40mg tablet PO SCH ×2 (07:55→19:12)
[2019-02-20] MEDS: heparin, porcine 5000 units/ml vial SQ SCH (08:00)
--- NOTE | 2019-02-20 08:42 | NUR ---
Spoke with dr. salomon in regards to pt PLT of 78, advised to hold AM scheduled heparin.
[2019-02-20] MEDS: budesonide 0.5mg/2ml UD nebule IH SCH ×2 (10:06→20:37)
--- NOTE | 2019-02-20 17:49 | NUR ---
[place] documentation: I have reviewed and agree with all interventions, assessments performed and documented by JOHNY Vaca.
--- NOTE | 2019-02-20 17:51 | NUR ---
[place] Medication Administration: For this medication-pass time frame, all medication were reviewed, dispensed, administered and documented per hospital policy by JOHNY Vaca.
--- NOTE | 2019-02-20 18:19 | NUR ---
Problems reprioritized. Patient report given, questions answered & plan of care reviewed with Melissa MCCLAIN.
[2019-02-20] MEDS: Melatonin 3mg tablet PO SCH (22:41)
[2019-02-21] VITALS (7 sets, daily range): BP systolic 103–157; BP diastolic 81–100
[2019-02-21] MEDS: albuterol 2.5 MG/3 ML nebule NEB SCH ×4 (02:35→20:25)
[2019-02-21 05:34] LABS: BASOPHILS # (AUTO) 0.1 X10'3 (0-0.2); BASOPHILS % (AUTO) 1.2 % (0-1); EOSINOPHILS # (AUTO) 0.1 X10'3 (0-0.9); EOSINOPHILS % (AUTO) 1.6 % (0-6); HEMATOCRIT 47.9 % (42.0-52.0); HEMOGLOBIN 15.7 g/dl (14.0-17.9); LYMPHOCYTES # (AUTO) 1.1 X10'3 (1.1-4.8); LYMPHOCYTES % (AUTO) 11.6 % (21-51); MEAN CORPUSCULAR HEMOGLOBIN 33.2 PG (27.0-31.0); MEAN CORPUSCULAR HGB CONC 32.7 g/dL (33.0-36.5); MEAN CORPUSCULAR VOLUME 101.4 FL (78-98); MEAN PLATELET VOLUME 10.6 FL (7.4-10.4); MONOCYTES # (AUTO) 0.8 X10'3 (0-0.9); NEUTROPHILS # (AUTO) 7.1 X10'3 (1.8-7.7); NEUTROPHILS % (AUTO) 76.6 % (42-75); PLATELET COUNT 91 X10'3 (140-440); RED BLOOD COUNT 4.73 X10'6 (4.70-6.10); WHITE BLOOD COUNT 9.2 X10'3 (4.5-11.0)
[2019-02-21 05:59] LABS: ALANINE AMINOTRANSFERASE 24 U/L (12-78); ALBUMIN 3.2 G/DL (3.4-5.0); ALKALINE PHOSPHATASE 109 IU/L (46-116); ANION GAP 9 (8-16); ASPARTATE AMINO TRANSFERASE 25 U/L (10-37); BLOOD UREA NITROGEN 89 MG/DL (7-18); CALCIUM 9.2 MG/DL (8.5-10.1); CHLORIDE 97 MMOL/L (99-107); GLUCOSE 105 MG/DL (70-104); MAGNESIUM 2.5 MG/DL (1.5-2.4); POTASSIUM 4.7 MMOL/L (3.5-5.1); SODIUM 137 MMOL/L (135-145); TOTAL CARBON DIOXIDE 30.7 MMOL/L (24-32); eGFR 23 ML/MIN
[2019-02-21 06:03] LABS: TOTAL PROTEIN 6.4 G/DL (6.4-8.2)
--- NOTE | 2019-02-21 06:06 | NUR ---
Patient in room PCU 3023. I have received report from JOHNY Torres and had the opportunity to ask questions and assume patient care.
[2019-02-21] MEDS: carvedilol 6.25mg tablet PO SCH ×2 (07:20→20:01)
[2019-02-21] MEDS: pantoprazole 40mg Tablet.DR PO SCH (07:20)
[2019-02-21] MEDS: levoTHYROXINE 25mcg tablet PO SCH (07:20)
[2019-02-21] MEDS: sertraline 50mg tablet PO SCH (07:20)
[2019-02-21] MEDS: multivitamins, therapeutics tablet PO SCH (07:20)
[2019-02-21] MEDS: ferrous sulfate 325mg tablet PO SCH (07:20)
[2019-02-21] MEDS: aspirin 81mg tab.chew PO SCH (07:20)
[2019-02-21] MEDS: furosemide 40mg tablet PO SCH (07:20)
[2019-02-21] MEDS: fludrocortisone acetate 0.1mg tablet PO SCH (07:45)
[2019-02-21] MEDS: sevelamer carbonate 800mg tablet PO SCH ×3 (07:45→17:40)
[2019-02-21] MEDS: budesonide 0.5mg/2ml UD nebule IH SCH ×2 (08:23→20:25)
[2019-02-21 08:55] LABS: ANISOCYTOSIS 2+; LARGE PLATELETS FEW; PLATELET ESTIMATE DECREASED; POIKILOCYTOSIS 1+; POLYCHROMASIA 1+
--- NOTE | 2019-02-21 14:57 | NUR ---
O2 Sat at rest on room air:_97__% If below 89%: Recovery O2 Sat at rest on ___LPM:__%:___% via (mask/nasal cannula, etc..) No further documentation is necessary. If O2 Sat did not drop below 89% on room air,ambulate patient on room air. O2 Sat while ambulating on room air:_86__% Recovery O2 Sat while ambulating on __3_LPM:_93__% No further documentation is necessary. If patient does not drop below 89% while ambulating, he/she does not qualify for home O2.
[2019-02-21] MEDS: DOBUTamine-DoBUTrex 500mg/D5W 250 ML IV SCH (16:13)
--- NOTE | 2019-02-21 18:12 | NUR ---
Problems reprioritized. Patient report given, questions answered & plan of care reviewed with JOHNY Burrell.
[2019-02-21] MEDS: diphenhydrAMINE 25mg capsule PO PRN (20:02)
[2019-02-21] MEDS: Melatonin 3mg tablet PO SCH (20:03)
[2019-02-22] VITALS (8 sets, daily range): BP systolic 102–134; BP diastolic 59–101
[2019-02-22] MEDS: albuterol 2.5 MG/3 ML nebule NEB SCH ×4 (02:37→20:25)
[2019-02-22] MEDS: diphenhydrAMINE 25mg capsule PO PRN ×2 (04:15→20:29)
[2019-02-22 05:15] LABS: BASOPHILS # (AUTO) 0.1 X10'3 (0-0.2); EOSINOPHILS # (AUTO) 0.1 X10'3 (0-0.9); HEMOGLOBIN 15.1 g/dl (14.0-17.9); LYMPHOCYTES # (AUTO) 1.2 X10'3 (1.1-4.8); LYMPHOCYTES % (AUTO) 14.4 % (21-51); WHITE BLOOD COUNT 8.3 X10'3 (4.5-11.0)
[2019-02-22 05:18] LABS: BASOPHILS % (AUTO) 1.1 % (0-1); EOSINOPHILS % (AUTO) 1.4 % (0-6); HEMATOCRIT 45.3 % (42.0-52.0); MEAN CORPUSCULAR HEMOGLOBIN 33.6 PG (27.0-31.0); MEAN CORPUSCULAR HGB CONC 33.2 g/dL (33.0-36.5); MEAN CORPUSCULAR VOLUME 101.2 FL (78-98); MEAN PLATELET VOLUME 11.2 FL (7.4-10.4); MONOCYTES # (AUTO) 0.8 X10'3 (0-0.9); MONOCYTES % (AUTO) 9.4 % (2-12); NEUTROPHILS # (AUTO) 6.1 X10'3 (1.8-7.7); NEUTROPHILS % (AUTO) 73.7 % (42-75); PLATELET COUNT 109 X10'3 (140-440); RED BLOOD COUNT 4.48 X10'6 (4.70-6.10); RED CELL DISTRIBUTION WIDTH 19.3 % (11.5-14.5)
[2019-02-22 05:51] LABS: ALANINE AMINOTRANSFERASE 23 U/L (12-78); ALKALINE PHOSPHATASE 97 IU/L (46-116); ASPARTATE AMINO TRANSFERASE 25 U/L (10-37); BILIRUBIN,TOTAL 4.2 MG/DL (0.1-1.0); BLOOD UREA NITROGEN 99 MG/DL (7-18); BUN/CREATININE RATIO 30.7 (5.4-32.0); CHLORIDE 99 MMOL/L (99-107); CREATININE 3.23 MG/DL (0.60-1.10); GLUCOSE 94 MG/DL (70-104); MAGNESIUM 2.6 MG/DL (1.5-2.4); TOTAL CARBON DIOXIDE 28.5 MMOL/L (24-32); eGFR 19 ML/MIN
[2019-02-22 06:16] LABS: ANISOCYTOSIS 2+; LARGE PLATELETS FEW; PLATELET ESTIMATE DECREASED
--- NOTE | 2019-02-22 06:16 | NUR ---
Patient in room PCU 3023. I have received report from JOHNY Burrell and had the opportunity to ask questions and assume patient care.
[2019-02-22 06:17] LABS: POIKILOCYTOSIS FEW
--- NOTE | 2019-02-22 06:18 | NUR ---
Problems reprioritized. Patient report given, questions answered & plan of care reviewed with Shubham MCCLAIN.
[2019-02-22 06:24] LABS: ANION GAP 15 (8-16); PHOSPHORUS 5.5 MG/DL (2.3-4.5); POTASSIUM 4.5 MMOL/L (3.5-5.1); SODIUM 142 MMOL/L (135-145); TOTAL PROTEIN 6.1 G/DL (6.4-8.2)
[2019-02-22] MEDS: DOBUTamine-DoBUTrex 500mg/D5W 250 ML IV SCH (06:34)
[2019-02-22] MEDS: carvedilol 6.25mg tablet PO SCH ×2 (07:43→20:31)
[2019-02-22] MEDS: ferrous sulfate 325mg tablet PO SCH (07:43)
[2019-02-22] MEDS: sertraline 50mg tablet PO SCH (07:43)
[2019-02-22] MEDS: pantoprazole 40mg Tablet.DR PO SCH (07:43)
[2019-02-22] MEDS: levoTHYROXINE 25mcg tablet PO SCH (07:43)
[2019-02-22] MEDS: sevelamer carbonate 800mg tablet PO SCH ×3 (07:43→18:07)
[2019-02-22] MEDS: multivitamins, therapeutics tablet PO SCH (07:43)
[2019-02-22] MEDS: aspirin 81mg tab.chew PO SCH (07:43)
[2019-02-22] MEDS: fludrocortisone acetate 0.1mg tablet PO SCH (07:43)
[2019-02-22] MEDS ORDERED: furosemide 40mg tablet PO SCH (08:00)
[2019-02-22] MEDS: budesonide 0.5mg/2ml UD nebule IH SCH ×2 (08:43→20:24)
[2019-02-22] MEDS: morphine 2 MG/ML inj. syringe IV PRN ×2 (08:48→20:30)
--- NOTE | 2019-02-22 09:45 | NUR ---
PAGER ID: [phone] MESSAGE: [id number] [phone] Addendum: 02/22/19 at 0945 by Shubham Hansen RN No new orders.
[2019-02-22] MEDS: furosemide 40mg/4ml inj IV SCH ×2 (14:26→20:29)
--- NOTE | 2019-02-22 15:07 | NUR ---
Refused orthostatic vitals
--- NOTE | 2019-02-22 18:15 | NUR ---
Patient in room PCU 3023. I have received report from Shubham MCCLAIN and had the opportunity to ask questions and assume patient care.
--- NOTE | 2019-02-22 18:21 | NUR ---
Problems reprioritized. Patient report given, questions answered & plan of care reviewed with JOHNY Burrell.
[2019-02-22] MEDS: Melatonin 3mg tablet PO SCH (20:40)
--- NOTE | 2019-02-22 22:10 | NUR ---
Patient transferring to [facility]. Called report to Brittny MCCLAIN. [facility] transporting patient by airplane. All patient's belongings are with his significant other "Monica." Packet given to Rocío MCCLAIN with [facility].
== END 2019-02-22 22:10 | disposition short-term general hospital (02) | DRG 682 ==
LOC: ER 18:50 → PCU 3S 23:10 → CMPBEDREQ 23:55
PROVIDERS: ADMIT Hospitalist; ATTEND Internal Medicine
PROC: 5A09357 Assistance with Respiratory Ventilation, Less than 24 Consecutive Hours, Continuous Positive Airway Pressure (ICD-10-PCS; principal; 2019-02-13)
PROC: 5A09357 Assistance with Respiratory Ventilation, Less than 24 Consecutive Hours, Continuous Positive Airway Pressure (ICD-10-PCS; 2019-02-14)
PROC: 02HV33Z Insertion of Infusion Device into Superior Vena Cava, Percutaneous Approach (ICD-10-PCS; 2019-02-14)
PROC: 4A02X4A Measurement of Cardiac Electrical Activity, Guidance, External Approach (ICD-10-PCS; 2019-02-14)
PROC: B548ZZA Ultrasonography of Superior Vena Cava, Guidance (ICD-10-PCS; 2019-02-14)
PROC: 5A09357 Assistance with Respiratory Ventilation, Less than 24 Consecutive Hours, Continuous Positive Airway Pressure (ICD-10-PCS; 2019-02-15)
PROC: 5A09357 Assistance with Respiratory Ventilation, Less than 24 Consecutive Hours, Continuous Positive Airway Pressure (ICD-10-PCS; 2019-02-16)
PROC: 5A09357 Assistance with Respiratory Ventilation, Less than 24 Consecutive Hours, Continuous Positive Airway Pressure (ICD-10-PCS; 2019-02-18)
PROC: 5A09357 Assistance with Respiratory Ventilation, Less than 24 Consecutive Hours, Continuous Positive Airway Pressure (ICD-10-PCS; 2019-02-19)
PROC: 5A09357 Assistance with Respiratory Ventilation, Less than 24 Consecutive Hours, Continuous Positive Airway Pressure (ICD-10-PCS; 2019-02-20)
PROC: 5A09357 Assistance with Respiratory Ventilation, Less than 24 Consecutive Hours, Continuous Positive Airway Pressure (ICD-10-PCS; 2019-02-21)
PROC: 5A09357 Assistance with Respiratory Ventilation, Less than 24 Consecutive Hours, Continuous Positive Airway Pressure (ICD-10-PCS; 2019-02-22)
DX: N17.9 Acute kidney failure, unspecified (principal); I50.23 Acute on chronic systolic (congestive) heart failure; J96.01 Acute respiratory failure with hypoxia; E44.0 Moderate protein-calorie malnutrition; I42.8 Other cardiomyopathies; I13.0 Hypertensive heart and chronic kidney disease with heart failure and stage 1 through stage 4 chronic kidney disease, or unspecified chronic kidney disease; E87.5 Hyperkalemia; E86.0 Dehydration; E03.9 Hypothyroidism, unspecified; E66.9 Obesity, unspecified; G47.33 Obstructive sleep apnea (adult) (pediatric); I25.10 Atherosclerotic heart disease of native coronary artery without angina pectoris; I48.91 Unspecified atrial fibrillation; J44.9 Chronic obstructive pulmonary disease, unspecified; F32.9 Major depressive disorder, single episode, unspecified; G47.00 Insomnia, unspecified; I45.4 Nonspecific intraventricular block; N18.9 Chronic kidney disease, unspecified; Z88.8 Allergy status to other drugs, medicaments and biological substances; Z68.37 Body mass index [BMI] 37.0-37.9, adult; Z79.82 Long term (current) use of aspirin; Z79.899 Other long term (current) drug therapy; Z95.810 Presence of automatic (implantable) cardiac defibrillator; Z95.1 Presence of aortocoronary bypass graft; Z90.49 Acquired absence of other specified parts of digestive tract
CPT/HCPCS: 36415; 36569; 36600; 71045; 71046; 76775; 76937; 80048; 80053; 81001; 82570; 82803; 82948; 83735; 83880; 83935; 84100; 84133; 84156; 84300; 84443; 84484; 84560; 85018; 85025; 85730; 87081; 87207; 93005; 93306; 94640; 94660; 94760; 96374; 96375; 97110; 97116; 97161; 97530; 99285; G0378; J1250; J1644; J1815; J1940; J2060; J2270; J2405; J7626; Q0163